=== PATIENT | male | born 1995 | race Caucasian/White ===

== ENCOUNTER 2017-11-19 21:18 | Emergency (ER) | payer OTHER ==
[~2017-11-19] VITALS: Ht 182.9 cm; Wt 75.4 kg
[2017-11-19 21:21] VITALS: Ht 182.9 cm; Wt 75.4 kg
[2017-11-19] MEDS ORDERED: ACETAMINOPHEN 500 MG TAB PO STA (21:42)
[2017-11-19] MEDS ORDERED: IBUPROFEN 800 MG TAB PO STA (21:42)
[2017-11-19] MEDS ORDERED: ONDANSETRON 4MG OD TAB PO ONE (21:45)
--- NOTE | 2017-11-19 22:00 | EMERGENCY ROOM VISIT NOTE ---
History Report prepared by Mukesh: Geno Sheridan Under the Supervision of: Dr. Randolph Evans M.D. First contact with patient: 21:30 Chief Complaint: FEVER Stated Complaint: FEVER,SORE THROAT, CHILLS,VOMITING History of Present Illness The patient is a 22 year old male who presents to the Emergency Room with complaints of worsening flu like symptoms that began 12 hours ago. He reports that this morning he began experiencing a fever, sore throat, congestion, nausea , body aches in his legs, and pain swallowing that worsened throughout the day. The patient states that he threw up twice today, noting he has been able to eat much today. He notes that he has been taking Tylenol to help relieve his symptoms, which has been helping. The patient denies having a cough, abdominal pain, or getting a flu shot this year. He notes a history of anxiety. Source of History: patient Onset: 12 hours ago Position: other (diffuse) Quality: other (flu like symptoms) Timing: worsening Associated Symptoms: + fevers, + sorethroat, No cough, No nausea, No vomiting, No abdominal pain Note: Associated symptoms include: congestion, body aches in his legs, and pain swallowing. Review of Systems See HPI for pertinent positives and negatives. A total of ten systems were reviewed and were otherwise negative. Past Medical & Surgical Medical Problems: (1) Anxiety (2) Bronchitis (3) Pneumonia Family History Cancer Heart disease Hypertension Social History Smoking Status: Never Smoker Smokeless Tobacco Use: No Alcohol Use: none Drug Use: none Marital Status: single Housing Status: lives with roommate Occupation Status: [employer] student Current/Historical Medications Scheduled Ondasetron Odt (Zofran Odt), 4 MG SL Q6H Scheduled PRN Acetaminophen (Tylenol), 1,000 MG PO Q6H PRN for Pain or Fever Ibuprofen Tab (Motrin), 800 MG PO Q8H PRN for Pain Allergies Coded Allergies: No Known Allergies (Unverified , 11/19/17) Physical Exam Vital Signs Date Time Temp Pulse Resp B/P (MAP) Pulse Ox O2 Delivery O2 Flow Rate FiO2 11/20/17 01:12 37.0 82 20 123/67 99 11/19/17 23:29 37.7 76 20 111/54 97 Room Air 11/19/17 21:21 37.3 109 16 117/56 99 Room Air Physical Exam GENERAL: Awake, alert, fatigued-appearing, in no distress HENT: Mild injection in posterior oropharynx, no edema. No tongue elevation or stomatitis. No pain with tracheal manipulations. Normocephalic, atraumatic. EYES: Normal conjunctiva. Sclera non-icteric. NECK: Supple. No nuchal rigidity. FROM. No JVD. RESPIRATORY: Clear to auscultation. CARDIAC: Regular rate, normal rhythm. Extremities warm and well perfused. Pulses equal. ABDOMEN: Soft, non-distended. No tenderness to palpation. No rebound or guarding. No masses. RECTAL: Deferred. MUSCULOSKELETAL: Chest examination reveals no tenderness. The back is symmetrical on inspection without obvious abnormality. There is no CVA tenderness to palpation. No joint edema. LOWER EXTREMITIES: Calves are equal size bilaterally and non-tender. No edema. No discoloration. NEURO: Normal sensorium. No sensory or motor deficits noted. SKIN: No rash or jaundice noted. Medical Decision & Procedures Laboratory Results 11/19/17 23:22 Red Blood Count 5.20, Mean Corpuscular Volume 82.7, Mean Corpuscular Hemoglobin 29.4, Mean Corpuscular Hemoglobin Concent 35.6, Mean Platelet Volume 11.1, Neutrophils (%) (Auto) 85.1, Lymphocytes (%) (Auto) 8.5, Monocytes (%) (Auto) 5.2, Eosinophils (%) (Auto) 0.1, Basophils (%) (Auto) 0.2, Neutrophils # (Auto) 8.42, Lymphocytes # (Auto) 0.84, Monocytes # (Auto) 0.51, Eosinophils # (Auto) 0.01, Basophils # (Auto) 0.02 11/19/17 23:22 Test 11/19/17 21:59 11/19/17 23:22 Influenza Type A (RT-PCR) Neg for Influ A (NEG) Influenza Type A Antigen Neg for Influ A (NEG) Influenza Type B Antigen Neg for Influ B (NEG) Influenza Type B (RT-PCR) Neg for Influ B (NEG) White Blood Count 9.89 K/uL (4.8-10.8) Red Blood Count 5.20 M/uL (4.7-6.1) Hemoglobin 15.3 g/dL (14.0-18.0) Hematocrit 43.0 % (42-52) Mean Corpuscular Volume 82.7 fL (80-100) Mean Corpuscular Hemoglobin 29.4 pg (25-34) Mean Corpuscular Hemoglobin Concent 35.6 g/dl (32-36) Platelet Count 160 K/uL (130-400) Mean Platelet Volume 11.1 fL (7.4-10.4) Neutrophils (%) (Auto) 85.1 % Lymphocytes (%) (Auto) 8.5 % Monocytes (%) (Auto) 5.2 % Eosinophils (%) (Auto) 0.1 % Basophils (%) (Auto) 0.2 % Neutrophils # (Auto) 8.42 K/uL (1.4-6.5) Lymphocytes # (Auto) 0.84 K/uL (1.2-3.4) Monocytes # (Auto) 0.51 K/uL (0.11-0.59) Eosinophils # (Auto) 0.01 K/uL (0-0.5) Basophils # (Auto) 0.02 K/uL (0-0.2) RDW Standard Deviation 37.1 fL (36.4-46.3) RDW Coefficient of Variation 12.2 % (11.5-14.5) Immature Granulocyte % (Auto) 0.9 % Immature Granulocyte # (Auto) 0.09 K/uL (0.00-0.02) Anion Gap 10.0 mmol/L (3-11) Est Creatinine Clear Calc Drug Dose 107.4 ml/min Estimated GFR () 103.4 Estimated GFR (Non- 89.2 BUN/Creatinine Ratio 10.6 (10-20) Calcium Level 9.1 mg/dl (8.5-10.1) Total Bilirubin 2.6 mg/dl (0.2-1) Direct Bilirubin 0.3 mg/dl (0-0.2) Aspartate Amino Transf (AST/SGOT) 13 U/L (15-37) Alanine Aminotransferase (ALT/SGPT) 18 U/L (12-78) Alkaline Phosphatase 103 U/L (45-117) Total Protein 7.4 gm/dl (6.4-8.2) Albumin 4.2 gm/dl (3.4-5.0) Lipase 66 U/L (73-393) Laboratory results reviewed by me Medications Administered Medications (Trade) Dose Ordered Sig/Nanci Route Start Time Stop Time Status Last Admin Dose Admin Ondansetron HCl (Zofran Odt) 4 mg ONE ONCE PO 11/19/17 21:45 11/19/17 21:46 DC 11/19/17 21:45 4 MG Ibuprofen (Motrin Tab) 800 mg NOW STAT PO 11/19/17 21:42 11/19/17 21:43 DC 11/19/17 21:42 800 MG Acetaminophen (Tylenol Tab) 1,000 mg NOW STAT PO 11/19/17 21:42 11/19/17 21:44 DC 11/19/17 21:42 1,000 MG Ondansetron HCl (Zofran Odt) 4 mg NOW STAT PO 11/19/17 22:32 11/19/17 22:33 DC 11/19/17 22:32 4 MG Famotidine (Pepcid Tab) 20 mg NOW ONCE PO 11/19/17 22:45 11/19/17 22:46 DC 11/19/17 22:45 20 MG Sodium Chloride 2,000 ml @ 999 mls/hr Q2H1M STAT IV 11/19/17 23:15 11/20/17 01:15 DC 11/19/17 23:15 999 MLS/HR Ondansetron HCl (Zofran Inj) 4 mg NOW STAT IV 11/19/17 23:15 11/19/17 23:19 DC 11/19/17 23:15 4 MG Ondansetron HCl (ZOFRAN ODT 4MG Home Pack) 1 homepack UD ONCE PO 11/20/17 01:00 11/20/17 01:01 DC 11/20/17 01:00 1 HOMEPACK ED Course 2136: The patient was evaluated in room B2. A complete history and physical exam was performed. 2305: I reevaluated the patient, who was resting. We discussed on some test findings and he verbalized understanding. Medical Decision I reviewed the patient's past medical history, medications, and the nursing notes as described above. The patient's presentation and history were concerning for URI, viral syndrome, influenza, peritonsillar abscess, and retropharyngeal abscess. The patient is a 22-year-old gentleman who presents emergency department with 12 hours of fevers chills, sore throat, nasal congestion, nausea and vomiting per hpi. Rather patient is uncomfortable but no acute distress, temp of 37.8, heart rate 100s vital signs otherwise stable. On exam the patient has mild injection in the posterior pharynx but no edema or exudates. Rapid strep negative. Influenza negative. Despite oral Zofran patient with persistent nausea and vomiting. Thus IV was placed and given IV fluid hydration and antiemetics with good effect. Able to tolerate oral fluids. Labs consistent with dehydration in the setting of the patient's nausea and vomiting. Sxs are most consistent with a viral syndrome. Findings and plan for follow-up reviewed with patient. Patient agreeable and d/c'd per discharge instructions. Medication Reconcilliation Current Medication List: was personally reviewed by me Blood Pressure Screening Patient's blood pressure: Normal blood pressure Blood pressure disposition: Did not require urgent referral Impression Primary Impression: Viral syndrome Scribe Attestation The scribe's documentation has been prepared under my direction and personally reviewed by me in its entirety. I confirm that the note above accurately reflects all work, treatment, procedures, and medical decision making performed by me. Departure Information Dispostion Home / Self-Care Prescriptions Ibuprofen Tab (MOTRIN) 800 Mg Tab 800 MG PO Q8H Y for Pain for 7 Days, #21 TAB Prov: Randolph Evans M.D. 11/20/17 Ondasetron Odt (ZOFRAN ODT) 4 Mg Tab 4 MG SL Q6H for Nausea, #10 TAB Prov: Randolph Evans M.D. 11/20/17 Referrals No Doctor, Assigned (PCP) Forms HOME CARE DOCUMENTATION FORM, IMPORTANT VISIT INFORMATION Patient Instructions ED Viral Syndrome, My [facility] Additional Instructions Please follow up with S in the next 1-2 days for re-evaluation. You likely have a viral illness. Otherwise, your exam and lab results did not show signs of an emergent condition at this time. Acetaminophen or ibuprofen for pain and fevers as needed. Zofran as needed for nausea. Drink plenty of fluids to ensure hydration. Return to the emergency department for worsening symptoms as described in the accompanying instructions.
[2017-11-19] MEDS ORDERED: ACET-1256 PO (22:26)
[2017-11-19] MEDS ORDERED: ONDANSETRON 4MG OD TAB PO STA (22:32)
[2017-11-19 22:33] LABS: INFLUENZA B ANTIGEN Neg for Influ B (NEG)
[2017-11-19] MEDS ORDERED: FAMOTIDINE 20 MG TAB PO ONE (22:45)
[2017-11-19] MEDS ORDERED: SODIUM CHLORIDE 0.9% 1000ML 2,000 ML IV STA (23:15)
[2017-11-19] MEDS ORDERED: ONDANSETRON INJ 2 MG/ML 2 ML VIAL IV STA (23:15)
[2017-11-19 23:31] LABS: BASO % 0.2 %; BASO ABS # 0.02 K/uL (0-0.2); EOS % 0.1 %; EOS ABS # 0.01 K/uL (0-0.5); HEMOGLOBIN 15.3 g/dL (14.0-18.0); IG# 0.09 K/uL (0.00-0.02); LYMPH % 8.5 %; LYMPH ABS # 0.84 K/uL (1.2-3.4); MEAN CELL VOLUME 82.7 fL (80-100); MEAN CORPUSCULAR HEMOGLOBIN 29.4 pg (25-34); MEAN CORPUSCULAR HGB CONC 35.6 g/dl (32-36); MEAN PLATELET VOLUME 11.1 fL (7.4-10.4); MONO % 5.2 %; MONO ABS # 0.51 K/uL (0.11-0.59); NEUT % 85.1 %; NEUT ABS # 8.42 K/uL (1.4-6.5); PLATELET COUNT 160 K/uL (130-400); RED CELL DISTRIBUTION WIDTH CV 12.2 % (11.5-14.5); RED CELL DISTRIBUTION WIDTH SD 37.1 fL (36.4-46.3); WHITE BLOOD COUNT 9.89 K/uL (4.8-10.8)
[2017-11-19 23:49] LABS: ALBUMIN 4.2 gm/dl (3.4-5.0); CALCIUM 9.1 mg/dl (8.5-10.1); CREATININE 1.17 mg/dl (0.60-1.40); POTASSIUM 3.2 mmol/L (3.5-5.1)
[2017-11-20 00:02] LABS: TOTAL PROTEIN 7.4 gm/dl (6.4-8.2)
[2017-11-20 00:19] LABS: INFLUENZA A PCR Neg for Influ A (NEG); INFLUENZA B PCR Neg for Influ B (NEG)
[2017-11-20] MEDS ORDERED: ONDA4TAB10 SL (00:46)
[2017-11-20] MEDS ORDERED: IBUP-1451 PO (00:47)
[2017-11-20] MEDS ORDERED: ONDANSETRON HOME PACK 4MG OD TAB PO ONE (01:00)
[2017-11-20 01:12] VITALS: BP 123/67; PULSE 82; TEMP 37; O2SAT 99
== END 2017-11-20 01:12 | disposition home or self-care (01) ==
LOC: C.EDB 21:20
DX: B34.9 Viral infection, unspecified (principal); Z86.59 Personal history of other mental and behavioral disorders; Z87.01 Personal history of pneumonia (recurrent); Z82.49 Family history of ischemic heart disease and other diseases of the circulatory system